=== PATIENT | female | born 1995 | race Caucasian/White ===

== ENCOUNTER 2016-07-06 18:30 | Observation (INO) | payer BC, MEDICAID | END 2016-07-06 20:04 | disposition home or self-care (01) | DRG 781 | LOC: LDRP 18:30 | PROVIDERS: ADMIT Obstetrics & Gynecology; ATTEND Obstetrics & Gynecology | DX: O26.892 Other specified pregnancy related conditions, second trimester (principal); R10.2 Pelvic and perineal pain; M54.9 Dorsalgia, unspecified; Z3A.20 20 weeks gestation of pregnancy | CPT/HCPCS: 59025; 76815; 81002; G0378 ==

== ENCOUNTER 2016-07-20 10:15 | Observation (INO) | payer BC, MEDICAID ==
[2016-07-20] MEDS ORDERED: D5W/LACTATED RINGERS 1,000 ML IV SCH (10:35)
[2016-07-20] MEDS ORDERED: PROMETHAZINE HCL 25 MG/ML 1ML IM ONE (10:45)
[2016-07-20 11:42] LABS: Urine Bilirubin Negative (Negative); Urine Blood Negative /uL (Negative); Urine Color Yellow (Yellow); Urine Glucose Normal (Normal); Urine Mucus MODERATE (None Seen); Urine Nitrite Negative (Negative); Urine RBC 1 /hpf (0 - 4); Urine Squamous Epithelial Cell FEW /hpf (<5); Urine Urobilinogen Normal (Negative)
[2016-07-20 11:46] LABS: Urine Ketone 4+ (Negative)
== END 2016-07-20 16:30 | disposition home or self-care (01) | DRG 781 ==
LOC: LDRP 10:15
PROVIDERS: ADMIT Specialist; ATTEND Specialist
DX: O21.2 Late vomiting of pregnancy (principal); O99.282 Endocrine, nutritional and metabolic diseases complicating pregnancy, second trimester; E86.0 Dehydration; O26.892 Other specified pregnancy related conditions, second trimester; R10.9 Unspecified abdominal pain; Z3A.22 22 weeks gestation of pregnancy
CPT/HCPCS: 59025; 81001; 81002; 96360; 96361; 96372; G0378; G0434; J2550; 96365; 96366

== ENCOUNTER 2016-08-11 15:20 | Observation (INO) | payer BC ==
[2016-08-11] MEDS ORDERED: TERBUTALINE SULFATE 1 MG/ML 1ML VIAL SC SCH (16:45)
== END 2016-08-11 20:05 | disposition home or self-care (01) | DRG 781 ==
LOC: LDRP 15:20
PROVIDERS: ADMIT Specialist; ATTEND Specialist
DX: O36.8120 Decreased fetal movements, second trimester, not applicable or unspecified (principal); O26.892 Other specified pregnancy related conditions, second trimester; R10.9 Unspecified abdominal pain; Z3A.24 24 weeks gestation of pregnancy
CPT/HCPCS: 59025; 81002; 96372; G0378; J3105; 96361; 96366

== ENCOUNTER → 2016-11-02 | Outpatient (CLI) | payer BC ==
[2016-11-02 10:44] LABS: Basophils # (auto) 0 uL; Basophils % (auto) 0.3 % (0.0-2.0); CONDITION Y; DEFINITIVE SEE PRINTOUT; Eosinophils # (auto) 0 uL; Eosinophils % (auto) 0.4 % (0.0-7.0); Hemoglobin 10.1 g/dL (12.2-16.2); Lymphocytes # (auto) 1.6 uL; Lymphocytes % (auto) 17.3 % (10.0-50.0); Mean Corpuscular Hemoglobin 23.8 pg (28.0-32.0); Mean Corpuscular Hgb Conc. 32.5 g/dL (32.0-36.0); Mean Corpuscular Volume 73.2 fL (80.0-100.0); Mean Platelet Volume 8.5 fL (7.4-10.4); Monocytes # (auto) 0.8 uL; Monocytes % (auto) 8.5 % (0.0-12.0); Neutrophils # (auto) 6.8 uL; Neutrophils % (auto) 73.5 % (37.0-80.0); Platelet Count (auto) 259 10^3/uL (140-450); Red Cell Distribution Width 15.9 % (11.6-16.0); White Blood Cell 9.2 10^3/uL (4.4-10.8)
[2016-11-02 14:13] LABS: Microcytosis Moderate; Platelet Estimate Adequate
[2016-11-02 14:14] LABS: Hypochromia Slight; Ovalocytes FEW
== END | disposition home or self-care (01) ==
LOC: LAB 09:43
PROVIDERS: ATTEND Obstetrics & Gynecology
DX: Z34.80 Encounter for supervision of other normal pregnancy, unspecified trimester (principal); N76.0 Acute vaginitis; Z11.3 Encounter for screening for infections with a predominantly sexual mode of transmission
CPT/HCPCS: 36415; 85025; 86592; 87081

== ENCOUNTER 2016-11-29 03:48 | Inpatient (IN) | payer BC ==
[~2016-11-29] VITALS: Ht 160 cm; Wt 72.6 kg
[2016-11-29] VITALS (9 sets, daily range): BP systolic 97–137; BP diastolic 51–60
[2016-11-29] MEDS: LACTATED RINGER'S 1,000 ML IV SCH (00:30)
[2016-11-29] MEDS ORDERED: PHISODERM TOP SOLN 240ML BTL TOP PRN (04:15)
[2016-11-29] MEDS ORDERED: PENICILLIN G POT 5MIL/D5 50ML 50 ML IV ONE ×2 (04:15→04:22)
[2016-11-29] MEDS ORDERED: LACT. RINGERS/OXYTOCIN 20UNITS 1,000 ML IV SCH ×2 (04:15→08:28)
[2016-11-29] MEDS ORDERED: LACTATED RINGER'S 1,000 ML IV SCH ×2 (04:15→08:28)
[2016-11-29] MEDS ORDERED: METHYLERGONOVINE MALEATE 0.2 MG/ML AMP IM PRN (04:15)
[2016-11-29] MEDS ORDERED: DERMOPLAST 60ML BOTTLE TOP PRN (04:15)
[2016-11-29] MEDS ORDERED: NALBUPHINE HCL 10 MG/1ml INJECTION IV PRN (04:15)
[2016-11-29] MEDS ORDERED: WITCH HAZEL-GLYCERIN PAD TOP PRN (04:15)
[2016-11-29] MEDS ORDERED: LIDOCAINE 2%HCL (LOCAL ANESTH.) INJ 20ML MDV IJ ONE (04:15)
[2016-11-29] MEDS ORDERED: fentaNYL W ROPIVACAINE 150 ML EPI SCH ×2 (04:30→07:00)
[2016-11-29] MEDS ORDERED: LIDOCAINE HCL 2 %PF INJ 10ML AMP IJ ONE ×2 (04:30→05:35)
[2016-11-29] MEDS ORDERED: NALOXONE HCL 0.4 MG/ML VIAL IV ONE ×2 (04:30→07:00)
[2016-11-29] MEDS ORDERED: ePHEDrine SULFATE 50 MG/ML AMP IV ONE ×2 (04:30→07:00)
[2016-11-29] MEDS ORDERED: fentaNYL CITRATE 100 MCG/2 ML VL IV ONE (04:30)
[2016-11-29 04:44] LABS: Basophils # (auto) 0 uL; Basophils % (auto) 0.3 % (0.0-2.0); CONDITION Y; DEFINITIVE SEE PRINTOUT; Eosinophils # (auto) 0.1 uL; Eosinophils % (auto) 0.5 % (0.0-7.0); Hematocrit 31.2 % (36.0-46.0); Hemoglobin 9.9 g/dL (12.2-16.2); Lymphocytes # (auto) 2.2 uL; Lymphocytes % (auto) 17.7 % (10.0-50.0); Mean Corpuscular Hemoglobin 22.1 pg (28.0-32.0); Mean Corpuscular Hgb Conc. 31.9 g/dL (32.0-36.0); Mean Corpuscular Volume 69.5 fL (80.0-100.0); Mean Platelet Volume 8.9 fL (7.4-10.4); Monocytes # (auto) 0.9 uL; Monocytes % (auto) 7.6 % (0.0-12.0); Neutrophils # (auto) 9.1 uL; Neutrophils % (auto) 73.9 % (37.0-80.0); Platelet Count (auto) 274 10^3/uL (140-450); Red Cell Distribution Width 17.5 % (11.6-16.0); White Blood Cell 12.3 10^3/uL (4.4-10.8)
[2016-11-29] MEDS ORDERED: DOXY10TA OR (04:53)
[2016-11-29] MEDS ORDERED: ONDANSETRON HCL 4 MG/2 ML VIAL ONE ×2 (04:57→14:09)
[2016-11-29 05:01] LABS: INR 0.86 (0.9-1.15); Partial Thromboplastin Time 25.3 sec (22.64-33.71); Prothrombin Time 9.4 sec (9.37-12.3)
[2016-11-29 05:04] LABS: Albumin 2.6 g/dL (3.4-5.0); BUN/Creatinine Ratio 13.5; Calcium 8.1 mg/dL (8.5-10.1); Potassium 3.6 mmol/L (3.5-5.1)
[2016-11-29 05:07] LABS: Bilirubin, Total 0.4 mg/dL (0.2-1.0); Total Protein 6.8 g/dL (6.4-8.2)
[2016-11-29] MEDS ORDERED: BUTORPHANOL TARTRATE 2 MG/1 ML VIAL ONE (05:15)
[2016-11-29] MEDS ORDERED: fentaNYL CITRATE 100 MCG/2 ML VL ONE ×2 (05:34→14:59)
[2016-11-29] MEDS ORDERED: NALOXONE HCL 0.4 MG/ML VIAL ONE (05:34)
[2016-11-29] MEDS ORDERED: fentaNYL W ROPIVACAINE 150 ML EPI ONE (05:35)
[2016-11-29] MEDS ORDERED: ePHEDrine SULFATE 50 MG/ML AMP ONE ×2 (05:35→14:59)
[2016-11-29 05:45] LABS: Urine Bilirubin Negative (Negative); Urine Color Yellow (Yellow); Urine Glucose Normal (Normal); Urine Ketone Negative (Negative); Urine Nitrite Negative (Negative); Urine RBC 11 /hpf (0 - 4); Urine Squamous Epithelial Cell FEW /hpf (<5); Urine Urobilinogen Normal (Negative)
[2016-11-29] MEDS ORDERED: BUTORPHANOL TARTRATE 2 MG/1 ML VIAL IV ONE (05:45)
[2016-11-29 05:54] LABS: Urine Blood 1+ /uL (Negative)
[2016-11-29] MEDS ORDERED: SODIUM CHLORIDE 0.9% 500 ML IV PRN (07:00)
[2016-11-29] MEDS ORDERED: PENICILLIN G POTASSIUM 2,500,000 UNITS in D5W 5% 50 ML IV SCH (08:15)
[2016-11-29] MEDS ORDERED: TERBUTALINE SULFATE 1 MG/ML 1ML VIAL SC ONE (08:30)
[2016-11-29] MEDS ORDERED: ceFAZolin 1GM/50ML D5W 50 ML IV SCH (14:00)
[2016-11-29] MEDS ORDERED: ONDANSETRON HCL 4 MG/2 ML VIAL IV ONE (14:15)
[2016-11-29] MEDS ORDERED: MORPHINE SULF(PF) 0.5MG/ML 10ML VIAL ONE (14:58)
[2016-11-29] MEDS ORDERED: ceFAZolin 1GM VL ONE (14:59)
[2016-11-29] MEDS ORDERED: MIDAZOLAM HCL 1MG/1ML-2 ML VIAL ONE (14:59)
[2016-11-29] MEDS ORDERED: LIDOCAINE 2%HCL (LOCAL ANESTH.) INJ 20ML MDV ONE (14:59)
[2016-11-29] MEDS ORDERED: OXYTOCIN 10 UNIT/ML 10ML VIAL ONE (14:59)
[2016-11-29] MEDS ORDERED: SODIUM BICARBONATE INFANT SYR 10 ML SYRG IV ONE (14:59)
[2016-11-29] MEDS ORDERED: SODIUM BICARBONATE 8.4% INJ 50ML SYRINGE ONE (15:01)
[2016-11-29] MEDS ORDERED: HYDROmorphone HCL 2 MG/ML VL IV PRN (16:15)
[2016-11-29] MEDS ORDERED: METOCLOPRAMIDE HCL 5MG/ml INJ 2ml VIAL IV ONE (16:15)
[2016-11-29] MEDS ORDERED: diphenhdrAMINE HCL 50 MG/1 ML VL IV PRN (16:15)
[2016-11-29] MEDS ORDERED: NALOXONE HCL 0.4 MG/ML VIAL IV PRN (16:15)
[2016-11-29] MEDS ORDERED: KETOROLAC TROMETH 30 MG/ML 1ML VIAL IV ONE (16:15)
[2016-11-29] MEDS ORDERED: KETOROLAC TROMETH 30 MG/ML 1ML VIAL IV PRN (16:15)
[2016-11-29] MEDS: KETOROLAC TROMETH 30 MG/ML 1ML VIAL IV SCH (18:20)
[2016-11-29] MEDS: ONDANSETRON HCL 4 MG/2 ML VIAL IV PRN (22:30)
[2016-11-29] MEDS: ceFAZolin 1 GM/50ML D5W BAG IV SCH (22:30)
[2016-11-29] MEDS: HYDROmorphone HCL 2 MG/ML VL IV PRN (22:30)
[2016-11-30] VITALS (21 sets, daily range): BP systolic 90–116; BP diastolic 51–61
[2016-11-30] MEDS: KETOROLAC TROMETH 30 MG/ML 1ML VIAL IV SCH ×2 (00:26→05:56)
[2016-11-30] MEDS: LACTATED RINGER'S 1,000 ML IV SCH (00:30)
[2016-11-30] MEDS: HYDROmorphone HCL 2 MG/ML VL IV PRN (03:54)
[2016-11-30] MEDS: ONDANSETRON HCL 4 MG/2 ML VIAL IV PRN (03:55)
[2016-11-30] MEDS ORDERED: LACTATED RINGER'S 1,000 ML IV SCH (04:57)
[2016-11-30] MEDS: ceFAZolin 1 GM/50ML D5W BAG IV SCH ×2 (05:52→13:33)
[2016-11-30 07:00] LABS: Basophils # (auto) 0 uL; Basophils % (auto) 0.2 % (0.0-2.0); CONDITION Y; DEFINITIVE SEE PRINTOUT; Eosinophils # (auto) 0 uL; Eosinophils % (auto) 0.2 % (0.0-7.0); Hematocrit 22.3 % (36.0-46.0); Hemoglobin 7.3 g/dL (12.2-16.2); Lymphocytes # (auto) 1.7 uL; Lymphocytes % (auto) 11.3 % (10.0-50.0); Mean Corpuscular Hemoglobin 22.4 pg (28.0-32.0); Mean Corpuscular Hgb Conc. 32.5 g/dL (32.0-36.0); Mean Corpuscular Volume 68.8 fL (80.0-100.0); Mean Platelet Volume 8.7 fL (7.4-10.4); Monocytes # (auto) 0.8 uL; Monocytes % (auto) 5.4 % (0.0-12.0); Neutrophils # (auto) 12.3 uL; Neutrophils % (auto) 82.9 % (37.0-80.0); Platelet Count (auto) 190 10^3/uL (140-450); Red Cell Distribution Width 17.1 % (11.6-16.0); White Blood Cell 14.8 10^3/uL (4.4-10.8)
[2016-11-30] MEDS: DOCUSATE SOD 100 MG CAP PO SCH ×2 (09:51→22:35)
[2016-11-30] MEDS: HYDROcodone-ACET 5/325MG TAB PO PRN ×3 (09:52→20:15)
[2016-11-30] MEDS: IBUPROFEN 800 MG TAB PO PRN ×2 (13:23→22:41)
[2016-12-01 04:18] VITALS: BP 102/56
[2016-12-01] MEDS: HYDROcodone-ACET 5/325MG TAB PO PRN ×3 (06:12→19:07)
[2016-12-01] MEDS: LACTATED RINGER'S 1,000 ML IV SCH (07:11)
[2016-12-01 07:22] LABS: CONDITION Y; DEFINITIVE SEE PRINTOUT; Hematocrit 28.5 % (36.0-46.0); Hemoglobin 9.4 g/dL (12.2-16.2); Mean Corpuscular Hemoglobin 24.1 pg (28.0-32.0); Mean Corpuscular Hgb Conc. 32.9 g/dL (32.0-36.0); Mean Corpuscular Volume 73.1 fL (80.0-100.0); Platelet Count (auto) 247 10^3/uL (140-450); White Blood Cell 18.9 10^3/uL (4.4-10.8)
[2016-12-01 07:44] LABS: Red Cell Distribution Width 20.1 % (11.6-16.0)
[2016-12-01 07:46] LABS: Metamyelocytes % 0; Myelocytes % 0; Promyelocytes % 0; Reactive Lymphocytes 0
[2016-12-01 08:00] VITALS: BP 113/56
[2016-12-01 09:42] LABS: Platelet Estimate Adequate
[2016-12-01 09:44] LABS: Anisocytosis Moderate; Burr Cells FEW; Hypochromia Moderate; Microcytosis Moderate; Ovalocytes FEW
[2016-12-01] MEDS: DOCUSATE SOD 100 MG CAP PO SCH ×2 (11:09→22:16)
[2016-12-01 11:54] VITALS: BP 104/63
[2016-12-01 16:30] VITALS: BP 102/63
[2016-12-01 20:00] VITALS: BP 114/76
[2016-12-01] MEDS: IBUPROFEN 800 MG TAB PO PRN (22:20)
[2016-12-02] VITALS: BP 113/56
[2016-12-02] MEDS: HYDROcodone-ACET 5/325MG TAB PO PRN ×2 (00:14→05:23)
[2016-12-02 04:00] VITALS: BP 111/60
[2016-12-02] MEDS: IBUPROFEN 800 MG TAB PO PRN (07:20)
[2016-12-02 08:14] VITALS: BP 111/56
[2016-12-02] MEDS: DOCUSATE SOD 100 MG CAP PO SCH (10:00)
== END 2016-12-02 10:40 | disposition home or self-care (01) | DRG 766 ==
LOC: LDRP 03:48 → OBSVTOIN 03:48
PROVIDERS: ADMIT Obstetrics & Gynecology; ATTEND Obstetrics & Gynecology
PROC: 10D00Z1 Extraction of Products of Conception, Low, Open Approach (ICD-10-PCS; principal; 2016-11-29 15:12)
DX: O69.81X0 Labor and delivery complicated by cord around neck, without compression, not applicable or unspecified (principal); O99.02 Anemia complicating childbirth; O62.0 Primary inadequate contractions; D64.9 Anemia, unspecified; O42.92 Full-term premature rupture of membranes, unspecified as to length of time between rupture and onset of labor; O99.824 Streptococcus B carrier state complicating childbirth; Z37.0 Single live birth; Z3A.39 39 weeks gestation of pregnancy
CPT/HCPCS: 36415; 36430; 51702; 59025; 80053; 80307; 81001; 85007; 85025; 85027; 85610; 85730; 86850; 86900; 86901; 86920; 94762; 96361; 96366; 96374; J0690; J1885; J2250; J2405; J2540; J2590; J3010; J7060